=== PATIENT | female | born 1960 | race Hispanic/Latino ===

== ENCOUNTER 2016-08-24 06:27 | Inpatient (IN) | payer OTHER ==
[2016-08-24] MEDS ORDERED: Bupivacaine 0.5% Inj(30mL) ONE (07:13)
[2016-08-24] MEDS ORDERED: ePHEDrine 50 mg/ml Inj ONE ×2 (07:18→09:00)
[2016-08-24] MEDS ORDERED: Rocuronium 10 mg/ml (5 ml) ONE (07:18)
[2016-08-24] MEDS ORDERED: Succinylcholine 200 mg/10 ml Inj IV ONE (07:18)
[2016-08-24] MEDS ORDERED: Propofol 10 mg/ml Inj (20 ML) ONE (07:18)
[2016-08-24] MEDS ORDERED: Midazolam 2 MG/2 ML VIAL ONE (07:18)
[2016-08-24 07:38] LABS: HEMATOCRIT 37.9 % (34.0-47.0); MEAN CELL VOLUME 81.3 fl (81.0-99.0); MEAN CORPUSCULAR HEMOGLOBIN 26.3 pg (27.0-31.0); MEAN CORPUSCULAR HGB CONC 32.4 g/dL (33.0-37.0); RED CELL DISTRIBUTION WIDTH 13.5 % (11.5-14.5)
[2016-08-24 07:44] LABS: BLOOD UREA NITROGEN 12 mg/dl (7-17); CALCIUM 9.6 mg/dL (8.4-10.2); CARBON DIOXIDE 28 mmol/L (22-30); CHLORIDE 106 mmol/L (98-107); GFR AFRICAN-AMERICAN > 60; GLUCOSE,RANDOM 92 mg/dL (65-105); POTASSIUM 4.1 MMOL/L (3.6-5.0); SODIUM 142 mmol/l (132-148)
[2016-08-24] MEDS ORDERED: Lactated Ringer's 1,000 ML IV ONE ×2 (08:35→08:45)
[2016-08-24] MEDS ORDERED: Dexamethasone 4 mg/1 ml ONE (09:05)
[2016-08-24] MEDS ORDERED: Sevoflurane - Inhalation Anesthetic Liq (250 ml) ONE (09:13)
[2016-08-24] MEDS ORDERED: Neostigmine Methylsulfate 3mg/3ml Syringe IV ONE (10:44)
--- NOTE | 2016-08-24 10:58 | CARD ---
APPROVED REPORT EKG Measurement Heart [id number] <Conclusion> Sinus bradycardia Otherwise normal ECG
[2016-08-24] MEDS ORDERED: HYDROmorphone 0.5 mg/0.5 ml ISec IVP PRN (11:22)
--- NOTE | 2016-08-24 11:23 | PCM.OP ---
Operative Report - Operative Report Date of Surgery/Procedure: 08/24/16 Time of Surgery/Procedure: 07:30 Surgeon: Dr. Sonido OSULLIVAN Surgical Garment Assembler: Dr. Klever MORRIS Anesthesia/Sedation: Gen. Pre-Operative Diagnosis: Abdominal pain, endometriosis and severe pelvic congestion Post-Operative Diagnosis: Same Indication for Surgery: Severe abdominal pain and pelvic congestion Operative Findings: Endometrial lesions on the pelvic floor, sigmoid colon and involvement of the appendix Procedure/Operation Description: 1excision of sigmoid wall lesion. 2 appendectomy. Brief history: This is a 56-year-old woman who had been brought to the operating room by Dr. Klever Morris for persistent and severe abdominal pain. She had a history of endometriosis and is now explored for endometriosis, abdominal pain and pelvic congestion. Dr. Mccain he had initiated the operation when he asked for an intraoperative consultation due to the fact that there was potential involvement of the sigmoid colon and appendix. The following is a report of the procedure. Description of procedure: The patient had earlier brought to the operating room and Dr. Klever Morris where he had initiated a robotic exploration. At one point during the exploration he noted there was involvement with lesions in the wall of the sigmoid colon and the appendix. This portion of procedure was described by Dr. Morris (separate dictation Dr. MORRIS). I took over the robotic console and after videoscopic exploration the first lesion was noted on a very redundant sigmoid colon. The lesion in question was excised using blunt and sharp dissection with the aid of electrocautery. The sigmoid colon was retracted anteriorly and the lesion was undermined circumferentially with meticulous attention to hemostasis. Once the lesion was removed it was appropriately marked and sent separately to pathology as a separate specimen. At this point the area of dissection was examined and hemostasis was deemed adequate. Our attention then turned to the appendix where there was a similar adhesion which possibly involves another lesion. Using again blunt and sharp dissection with the aid of electrocautery the mesentery of the appendix was desiccated. The appendiceal artery was identified and this structure was also desiccated. The remaining mesentery was cut with robotic scissors. The appendix was then retracted anteriorly. Using a double pursestring suture of 3-0 Vicryl the base of the appendix was ligated. The appendix was then transected with electrocautery. Hemostasis was deemed adequate. An Endo 5 mm bag was placed through the 8 mm robotic port. The appendix was removed through this port site. It was appropriately marked and sent to pathology as a separate specimen. The operation was then turned over to Dr. Klever Morris (separate dictation Dr. MORRIS.) Estimated Blood Loss: 3 mL Complications: None Specimen: 1sigmoid colon wall. 2appendix Discharge & Condition: Stable
[2016-08-24] MEDS ORDERED: Oxycodone/Acetaminophen 5/325 mg Tab PO PRN (11:36)
[2016-08-24] MEDS ORDERED: DiphenhydrAMINE 50 mg/ml Inj ONE (12:34)
[2016-08-24] MEDS ORDERED: DiphenhydrAMINE 50 mg/ml Inj IVP PRN (12:35)
[2016-08-24] MEDS: Lactated Ringer's 1,000 ML IV SCH ×2 (13:35→19:22)
[2016-08-25] MEDS: Lactated Ringer's 1,000 ML IV SCH (01:46)
[2016-08-25 02:57] VITALS: TEMP 98.6
[2016-08-25 08:34] VITALS: BP 94/58; PULSE 76; RESP 20; O2SAT 97
--- NOTE | 2016-08-26 15:56 | PCM.OP ---
Operative Report - Operative Report Date of Surgery/Procedure: 08/24/16 Time of Surgery/Procedure: 08:00 Surgeon: adan porter md Baggage Security Checker: sonido salcido md , Nicky MARCELINO Anesthesia/Sedation: GET Pre-Operative Diagnosis: pelvic pain , dyspareunia , abdominal pain Post-Operative Diagnosis: pelvic congestion, pelvic endometriosis , chronic inflammatory changes of peritoneum , bowel serosa and appendix rule our endometriosis Indication for Surgery: This patient is a 56 year-old female with long ongoing history of known endometriosis, dysmenorrhea, and pelvic pain. She had 2 prior operations in the past consistent with endometirosis The patient was examined in the office and the exam confirmed specific point tenderness . Prior to the surgery the patient consented to the procedure, with an understanding for the surgery to identify the cause of the pain and as well as the likelihood of successful outcome, alternative modality of treatment, and potential risks. The patient had ample opportunity to ask and receive answers for the questions. The patient was then counselled for understanding of the potential risk of the procedure including but not limited to bleeding, infection, bladder and bowel perforation, and pelvic abscess Operative Findings: Extensive areas of chronic inflammation suggestive of chronic endometirosis , present also on sigmoid colon and appendix , general surgery called in to evaluate end perform excision Procedure/Operation Description: PROCEDURE PERFORMED: Cystoscopy with bilateral urethral catheterization. Retrograde injection of indocyanine green into the right and left ureter. Laparoscopy, robotic da Carlton, excision of endometriosis. Bilateral ureterolysis. to be dictated separately by Dr. Sonido Salcido, an excision of a sigmoid lesion and appendectomy. After the consent was obtained, the patient was brought to the operating room and placed on the operating table in the supine position. An intravenous catheter was started and antibiotics were administered. After satisfactory anesthesia was induced, the patient was positioned in the dorsal lithotomy position. The patient is placed in stable cardiac and pulmonary parameters in this position all areas prone to pressure injury were padded. The external genitalia were sterilely prepped and draped in the standard fashion. A timeout was performed. The cystoscope was introduced in the bladder under direct vision. Stanley cystoscopy was performed and attention was paid to both ureteral orifices, which were in a normal anatomic position. The left ureteral orifice was catheterized with a Greek open-ended urethral catheter. A solution of ICG was then injected for a total of 4 mL into the left ureter after ureteral catheter was advanced into the distal ureter. The ureteral catheter was then removed. Attention was paid to the right ureteral orifice. At this point, a ureteral catheter was advanced to the level of the right distal ureter. An additional 4 mL of indocyanine green were injected into the right ureter. The ureteral catheter was then removed. The bladder was inspected and noted to be free of tumor, stones or bleeding sources. The cystoscope was removed and a 16-Greek Casas catheter was placed. At this point, after placing a Valtchev uterine manipulator in the uterus, attention was on the abdomen. An incision was made below the umbilicus with a standard open laparoscopy technique. The abdominal cavity was entered in a blunt fashion. At this point, a trocar was inserted and the abdomen was insufflated. After insufflating the abdominal cavity, under direct visualization 3 additional trocars were inserted -- right lower quadrant, left mid quadrant and right upper quadrant. At this point, the da Carlton robot was brought on to the field. The da Carlton robot was brought into the field and docked and the procedure was commenced. At this point; the first part of the procedure was commenced. A brief enterolysis was performed freeing the rectosigmoid from adhesions. At this point, the ovary was elevated and the left pelvic sidewall was seen. Significant pelvic congestion was observed on the left side . The posterior aspect of the uterus and the pelvic sidewal and a white inflammatory patina suggestive of chronic inflammation and endometriosis . IC-Green fluorescent technology was used to identify the ureter. The peritoneum then was entered and incised and the retroperitoneal space was entered. A progressive dissection was performed, thus lateralizing the ureter in a [id number] fashion all the way from the pelvic brim all the way down to the uterine vessels. A progressive dissection was performed and an area of peritoneum containing endometriosis was excised in a single sample. Additionally, an area of peritoneum containing endometriosis was excised in the left ovarian fossa biopsy right on top of the uterine vessels with great care not to injure them. Throughout the procedure, the fluorescence was used intermittently to identify the ureter and making sure that it was either devascularized or damaged. At this point, attention was on the righthand side where similarly, the peritoneum was then entered and again the retroperitoneal space was entered and with great care to avoid the vessels and the ureter utilizing fluorescent technology, the ureter was progressively lateralized and a large area of peritoneum was excised and sent to pathology for confirmation of disease. Additionally, the right ovarian fossa appeared to be very inflamed with a white area suggestive of endometriosis. This area of peritoneum was also excised with great care not to damage the underlying uterine artery. An additional area of endometriosis was also excised from the posterior aspect of the cervix on the right uterosacral area. A similar excision was performed on the [facility] side , where, after elevating the ovary the peritoneum overlying the ureter was entered , the utreter was lateralized and an area of peritoneum was excised. The sub peritoneal fat was intimately adherent to the peritoneum suggesting chronic inflammation . . At this point, Dr. Sonido Salcido from general surgery was called in to excise an area of white infflammation suggestive of endometriosis on the surface of the colon. The appendix was also inspected and as it appeared abnormal, an appendectomy was performed also by dr Salcido. Once this was done, the pelvis was abundantly irrigated. It was checked for hemostasis, that appeared to be excellent. There was no damage to the vessel, the bowel or the ureters or any other vessels. The da Carlton robot was undocked, the abdomen was desufflated and the trocars removed. The abdominal cavity was closed in layers with 0 PDS for the fascia and 4-0 Monocryl and Dermabond for the skin. At the end of the procedure, all tapes and instrument counts were correct. Estimated Blood Loss: minimal Blood Replaced: none Sponge/Instrument Count: correct x2 Drains: none Complications: none Specimen: multiple sent to pathology Discharge & Condition: At the end of the procedure, all papers and instruments and counts were correct. The patient was taken to the recovery room in excellent condition.
== END 2016-08-25 12:21 | disposition home or self-care (01) | DRG 330 ==
LOC: H.OPSURG 06:27 → H.MEDSURG1 11:32
PROVIDERS: ADMIT Obstetrics & Gynecology Reproductive Endocrinology; ATTEND Obstetrics & Gynecology Reproductive Endocrinology
PROC: 3E0K8KZ Introduction of Other Diagnostic Substance into Genitourinary Tract, Via Natural or Artificial Opening Endoscopic (ICD-10-PCS; 2016-08-24)
PROC: 8E0W4CZ Robotic Assisted Procedure of Trunk Region, Percutaneous Endoscopic Approach (ICD-10-PCS; 2016-08-24)
PROC: 0UB04ZZ Excision of Right Ovary, Percutaneous Endoscopic Approach (ICD-10-PCS; 2016-08-24)
PROC: 0DTJ4ZZ Resection of Appendix, Percutaneous Endoscopic Approach (ICD-10-PCS; principal; 2016-08-24 08:30)
PROC: 0DBN4ZZ Excision of Sigmoid Colon, Percutaneous Endoscopic Approach (ICD-10-PCS; 2016-08-24 08:30)
PROC: 3E0K8KZ Introduction of Other Diagnostic Substance into Genitourinary Tract, Via Natural or Artificial Opening Endoscopic (ICD-10-PCS; 2016-08-24 08:30)
DX: N80.5 Endometriosis of intestine (principal); Q43.8 Other specified congenital malformations of intestine; N80.3 Endometriosis of pelvic peritoneum; N94.89 Other specified conditions associated with female genital organs and menstrual cycle; Z91.041 Radiographic dye allergy status; N94.10 Unspecified dyspareunia; N94.6 Dysmenorrhea, unspecified; N80.1 Endometriosis of ovary